=== PATIENT | male | born 1980 | race Two or more races ===

== ENCOUNTER 2024-06-26 10:54 | Emergency (ER) | payer MEDICAID, SELFPAY ==
[2024-06-26 10:55] VITALS: BMI 25.1
[2024-06-26 11:54] VITALS: BP 137/84; PULSE 82; RESP 18; TEMP 36.8; O2SAT 97; BMI 24.0
--- NOTE | 2024-06-26 12:05 | PD.EDRME ---
Rapid Medical Screening Exam RME Arrival date/time: 06/26/24 10:54 44-year-old male presents emergency department complaining of right lower quadrant pain after drinking more than normal last night. Chief Complaint: Abdominal Pain Time Seen by Provider: 06/26/24 11:59 Vital signs: Vital Signs Temperature 98.2 F 06/26/24 11:54 Pulse Rate 82 06/26/24 11:54 Respiratory Rate 18 06/26/24 11:54 Blood Pressure 137/84 H 06/26/24 11:54 Pulse Oximetry (%) 97 06/26/24 11:54 Oxygen Delivery Method Room Air 06/26/24 11:54 Vital signs reviewed by provider: Yes
[2024-06-26] MEDS: ONDANSETRON ODT 4 MG TABRAP PO (12:17)
[2024-06-26] MEDS: KETOROLAC INJ 60 MG/2 ML VIAL 30 MG IM (12:31)
[2024-06-26 13:00] VITALS: BP 131/65; PULSE 75; RESP 17; TEMP 36.4; O2SAT 95
[2024-06-26 13:20] LABS: Collection Type, Urine Clean Catch; Squamous Epithelial Cell,Urine 0 /hpf (0-5)
[2024-06-26 13:30] LABS: Basophils % (Auto) 0 % (0-2.5); Eosinophils % (Auto) 0 % (0-10); Hematocrit 45.6 % (41.0-53.0); Hemoglobin 15.7 g/dL (13.5-16.0); Immature Granulocytes % (Auto) 0 % (0-0); Immature Granulocytes Auto 0.02 Thou/mm3 (0.00-0.00); Lymphocytes # (Auto) 1.3 Thou/mm3 (1.0-4.8); Lymphocytes % (Auto) 17 % (10-50); Mean Corpuscular HGB Conc 34.4 g/dl (31.0-37.0); Mean Corpuscular Hemoglobin 30.7 pg (25.0-35.0); Mean Corpuscular Volume 89 fL (80-100); Monocytes # (Auto) 0.3 Thou/mm3 (0.0-0.8); Monocytes % (Auto) 3 % (0-12); Neutrophils # (Auto) 6.1 Thou/mm3 (1.8-7.7); Neutrophils % (Auto) 79 % (37-80); Nucleated Red Blood Cell % 0 /100 WBC (0); Platelet Count 180 Thou/mm3 (140-440); RDW Standard Deviation 41.3 fL (35.1-43.9); Red Blood Count 5.11 Miln/mm3 (4.50-5.90); White Blood Count 7.8 Thou/mm3 (3.8-10.6)
[2024-06-26 13:35] LABS: Bilirubin,Urine Negative (Negative); Blood,Urine Negative (Negative); Clarity,Urine Clear (Clear/Hazy); Color,Urine Lt-Yellow (Lt Yel-Yel); Culture Indicated,Urine Not Indicated; Glucose, Urine Negative (Negative); Ketones,Urine Negative (Negative); Leukocyte Esterase,Urine Negative (Negative); Nitrite,Urine Negative (Negative); PH,Urine 6.5 (5.0-7.0); Protein,Urine Trace (Neg - Trace); RBC,Urine 1 /hpf (0-3); Specific Gravity,Urine 1.015 (1.001-1.035); Urobilinogen,Urine Negative mg/dL (0.0-1.0); WBC,Urine 1 /hpf (0-5)
[2024-06-26 13:42] LABS: Amphetamine/Methamp Scrn,U Negative (Negative); Barbiturate Screen,Urine Negative (Negative); Benzodiazepines Screen,Urine Negative (Negative); Benzoylecgonine Screen, Ur Negative (Negative); Fentanyl Screen,Urine Negative (Negative); Opiate Screen,Urine Negative (Negative); THC Screen,Urine Negative (Negative)
[2024-06-26 13:49] LABS: Alanine Aminotransferase 19 U/L (10-49); Albumin, Serum 5.3 gm/dL (3.5-5.0); Alkaline Phosphatase 60 U/L (46-116); Anion Gap 5 (7-16); Aspartate Amino Transferase 18 U/L (0-34); BUN/Creatinine Ratio 11 Ratio (12-20); Bilirubin,Total 0.5 mg/dL (0.3-1.2); Blood Urea Nitrogen 10 mg/dL (9-23); Calcium 9.4 mg/dL (8.3-10.6); Calcium (Corrected) 9.4 mg/dL (8.5-10.1); Carbon Dioxide 31.8 mMol/L (20.0-31.0); Chloride 106 mMol/L (98-107); Creatinine (Component) 0.9 mg/dL (0.6-1.3); Globulin 2.7 gm/dL (2.3-3.5); Glucose 124 mg/dL (74-106); Lipase 176 U/L (12-53); Osmolality,Calculated 284 (275-295); Potassium 3.7 mMol/L (3.4-5.1); Sodium 143 mMol/L (136-145); eGFR > 60 See Note
[2024-06-26 13:53] LABS: Alcohol, Blood Medical 316.1 mg/dL (0-10.0)
--- NOTE | 2024-06-26 14:32 | EDNOTE_ITS ---
ED Abdominal Pain RME/HPI General Chief Complaint: Abdominal Pain Stated complaint: ABD PAIN FOR 10 MINUTES Time seen by provider: 06/26/24 11:59 Arrival date/time: 06/26/24 10:54 This is a 44-year-old male that comes in with complaints of right upper quadrant abdominal pain that started this morning. Patient reports nausea but no vomiting. Patient states that he had a lot to drink last night and had a little bit more this morning. Patient reports that he is not an alcoholic he does not drink every day and the last time he drank was about 2 years ago according to patient. Patient denies any past medical history. Patient denies fever and diarrhea. RME / HPI RME / HPI narrative: 06/26/24 10:54 44-year-old male presents emergency department complaining of right lower quadrant pain after drinking more than normal last night. Related Data Previous Rx's ?Medication ?Instructions ?Recorded lorazepam 1 mg tablet (Ativan) 1 mg PO HS #3 tabs 11/23/17 ondansetron 4 mg disintegrating 4 mg PO Q6H PRN nausea and 06/26/24 tablet vomiting #7 tabs Allergies Allergy/AdvReac Type Severity Reaction Status Date / Time No Known Allergies Allergy Verified 06/26/24 10:57 Review of Systems Review of Systems Systems Reviewed: All systems reviewed, normal except as documented Past Medical History Past Medical History Comments PMH COMMENT: denies ED Exam General General appearance: Present alert and in no apparent distress Head Head exam: Present atraumatic Eye Eye exam: Present normal appearance, PERRL and EOMI ENT ENT exam: Present normal exam, normal oropharynx and mucous membranes moist Neck Neck exam: Present normal inspection, full ROM and trachea midline Chest Chest inspection: Present normal inspection and symmetric chest wall rise Respiratory Respiratory exam: Present normal lung sounds bilaterally Cardiovascular Cardiovascular exam: Present regular rate, normal rhythm and normal heart sounds Abdominal Exam Abdominal exam: Present soft and other (Pain to light palpation to right upper quadrant) Extremities Exam Extremities exam: Present normal inspection and full ROM Back Exam Back exam: Present normal inspection and full ROM Neurological Exam Neurological exam: Present alert, oriented X3 and CN II-XII intact Psychiatric Psychiatric exam: Present normal affect and normal mood Skin Skin exam: Present warm, dry, intact and normal color Course Quality Measures none Orders Category Date Time Status US abdomen limited Stat Exams 06/26/24 14:39 Completed Alcohol, Blood Medical Stat Lab 06/26/24 13:05 Completed CBC Stat Lab 06/26/24 13:05 Completed CMP [Comprehensive Metabolic Panel] Stat Lab 06/26/24 13:05 Completed Drug Screen,Urine Stat Lab 06/26/24 13:00 Completed Lipase Stat Lab 06/26/24 13:05 Completed Urinalysis, C/S if Indicated Stat Lab 06/26/24 13:00 Completed Acetaminophen Tab [Tylenol ES Tab] Med 06/26/24 17:15 Discontinued 1,000 mg PO X1 ONE DiphenhydrAMINE INJ [Benadryl Inj] Med 06/26/24 17:15 Discontinued 25 mg IVP X1 ONE Ketorolac Inj [Toradol Inj] Med 06/26/24 12:19 Discontinued 30 mg IM X1 ONE Metoclopramide Inj [Reglan Inj] Med 06/26/24 17:26 Discontinued 10 mg IVP X1 ONE Ondansetron Inj [Zofran Inj] Med 06/26/24 14:38 Discontinued 4 mg IV X1 ONE Ondansetron Odt [Zofran Odt] Med 06/26/24 12:06 Discontinued 4 mg PO X1 ONE Sodium Chloride 0.9% 1000 ml [Ns] 1,000 ml Med 06/26/24 14:38 Discontinued IV 999 mls/hr Vital Signs Vital signs: Vital Signs Temperature 98.2 F 06/26/24 11:54 Pulse Rate 82 06/26/24 11:54 Respiratory Rate 18 06/26/24 11:54 Blood Pressure 137/84 H 06/26/24 11:54 Pulse Oximetry (%) 97 06/26/24 11:54 Oxygen Delivery Method Room Air 06/26/24 11:54 Abdominal Pain MDM MDM Narrative MDM Narrative:: CBC unremarkable BMP shows unremarkable LFTs but lipase is 176, UA negative drug screen negative Discussed case with , pt denies abdomen pain upon reassessment, considered a ct scan but given that pain is improved and patient reports feeling better. Pt was vomtiing at home prior which is likely caused alcohol intake which in turn made an elevated lipase Patient data External records reviewed:: [facility] previous records Clinical information provided by:: patient Social determinants that could affect healthcare access:: none Patient has the following chronic illnesses:: none How is presenting disease/condition affected by chronic disease/condition?: no chronic disease Evaluation data The following diagnostics were reviewed and interpreted by me:: lab results and radiology exam(s) Lab and/or radiology exams considered but not ordered:: ct scan abdomen and pelvis Interpretation Summary: see note Medications / Prescriptions Medications or Prescriptions considered but not ordered:: none Medication administrations:: Medication Administration History Discontinued Medications Acetaminophen (Acetaminophen 500 Mg Tablet) 1,000 mg PO X1 ONE Stop: 06/26/24 17:16 Last Admin: 06/26/24 17:33 Dose: 1,000 mg Documented By: MILO Diphenhydramine HCl (Diphenhydramine Inj 50 Mg/Ml Vial) 25 mg IVP X1 ONE Stop: 06/26/24 17:16 Last Admin: 06/26/24 17:33 Dose: 25 mg Documented By: MILO Sodium Chloride (Ns) 1,000 mls @ 999 mls/hr IV .Q1H1M ONE Stop: 06/26/24 15:38 Last Infusion: 06/26/24 17:06 Dose: Infused Documented By: Admin: 06/26/24 16:04 Dose: 999 mls/hr Documented By: OLEG Ketorolac Tromethamine (Ketorolac Inj 60 Mg/2 Ml Vial) 30 mg IM X1 ONE Stop: 06/26/24 12:20 Last Admin: 06/26/24 12:31 Dose: 30 mg Documented By: HARRIETT Metoclopramide HCl (Metoclopramide Inj 5 Mg/Ml Vial 2 Ml) 10 mg IVP X1 ONE; Protocol Stop: 06/26/24 17:27 Last Admin: 06/26/24 17:33 Dose: 10 mg Documented By: MILO Ondansetron HCl (Ondansetron Odt 4 Mg Tabrap) 4 mg PO X1 ONE; Protocol Stop: 06/26/24 12:07 Last Admin: 06/26/24 12:17 Dose: 4 mg Documented By: HARRIETT Ondansetron HCl (Ondansetron Inj 2 Mg/Ml Inj 2 Ml) 4 mg IV X1 ONE; Protocol Stop: 06/26/24 14:39 Last Admin: 06/26/24 16:02 Dose: 4 mg Documented By: OLEG see mar Consultations Consultation(s) initiated? (list below): No Diagnosis Differential diagnosis abdominal pain: abdominal pain, acute appendicitis, pancreatitis and other (Alcohol induced pancreatitis ) Most likely diagnosis given after review of the tests above:: elevated lipase, acute alcoholism Admission Indicated Admission indicated?: not indicated Admission Request Was there a request for admission?: No Disposition Plan Disposition Plan: Discharge Discharge Attestation Discharge Attestation: The patient and all family members were given an opportunity to ask questions and understood the discharge instructions. Discharge instructions specifically effects, indications for sooner follow up or return to the emergency department, and the expected course of current diagnosis. Patient condition: Stable Discharge Plan Plan Patient Disposition: HOME (Self Care) Patient condition on transfer: Stable Prescriptions/Referrals Prescriptions/Med Rec: New ondansetron 4 mg tablet,disintegrating 4 mg PO Q6H PRN (Reason: nausea and vomiting) Qty: 7 0RF No Action lorazepam [Ativan] 1 mg tablet 1 mg PO HS Qty: 3 0RF Referrals: No Primary/Family,Physician [Primary Care Provider] - In 1 week Problem List Clinical Impression: Elevated lipase, Abdominal pain, Alcohol intoxication Patient/Caregiver Discharge Instructions Discharge Activity: activity as tolerated Education Materials: ED Alcohol Intoxication Additional Instructions: Please drink plenty of fluids. Stop drinking alcohol. Come back to the emergency room if symptoms change or worsen. Follow-up with primary provider in 1 to 2 days. Print Language: Tajik Stand Alone Forms: Moni Award Info., Patient Portal Info Letter RUBI/MACIEL Supervising Physician LAURA Supervising Physician: jessica
--- NOTE | 2024-06-26 14:39 | XR_ITS ---
Examination: Abdomen sonogram, Limited Date and time of exam: June 18, 2024 1506 hrs. Indications: Right upper abdominal pain with nausea vomiting today, elevated lipase on laboratory examination today Technique: Real-time ruiz scale transabdominal sonographic images of the upper abdomen obtained. Findings: Negative for gallstones Gallbladder wall 0.38 cm no edema Common bile duct 0.2 cm Liver 13.5 cm no liver lesions Normal hepatopedal portal venous flow Patent IVC Impression: Negative for cholelithiasis Mild gallbladder wall thickening but no gallbladder wall edema, clinical correlation advised, consider HIDA scan follow-up as clinically warranted Pancreas does not appear enlarged and no peripancreatic edema is noted, however, CT abdomen with contrast follow-up would be preferable in excluding pancreatitis
[2024-06-26] MEDS: ONDANSETRON INJ 2 MG/ML INJ 2 ML 4 MG IV (16:02)
[2024-06-26] MEDS: SODIUM CHLORIDE 0.9% 1000 ML 1,000 ML 999 ML IV (16:04)
[2024-06-26 17:09] VITALS: BP 128/76; PULSE 77; RESP 16; TEMP 36.7; O2SAT 97
[2024-06-26] MEDS: METOCLOPRAMIDE INJ 5 MG/ML VIAL 2 ML 10 MG IVP (17:33)
[2024-06-26] MEDS: DiphenhydrAMINE INJ 50 MG/ML VIAL 25 MG IVP (17:33)
[2024-06-26] MEDS: ACETAMINOPHEN 500 MG TABLET 1000 MG PO (17:33)
== END 2024-06-26 17:44 | disposition home or self-care (01) ==
PROVIDERS: Emergency Provider Emergency Medicine
DX: R10.11 Right upper quadrant pain (principal); R74.8 Abnormal levels of other serum enzymes; F10.129 Alcohol abuse with intoxication, unspecified; Y90.8 Blood alcohol level of 240 mg/100 ml or more
CPT/HCPCS: 36415; 76705; 80053; 80307; 80320; 81001; 83690; 85025; 96361; 96372; 96374; 96375; 99284; J1200; J1885; J2405; J2765; J7030; Q0162; A9270; G0480